=== PATIENT | female | born 1950 | race Caucasian/White ===

== ENCOUNTER 2019-06-11 16:43 | Emergency (ER) | payer MEDICARE, OTHER ==
[~2019-06-11] VITALS: Ht 175.3 cm; Wt 88.5 kg
== END 2019-06-11 19:41 | disposition home or self-care (01) ==
LOC: ED 16:43
PROC: 0HQ0XZZ Repair Scalp Skin, External Approach (ICD-10-PCS; principal; 2019-06-11)
DX: S01.01XA Laceration without foreign body of scalp, initial encounter (principal); W01.198A Fall on same level from slipping, tripping and stumbling with subsequent striking against other object, initial encounter
CPT/HCPCS: 12001; 70450; 90471; 90715; 99283-25

== ENCOUNTER 2019-06-28 09:04 | Emergency (ER) | payer MEDICARE, OTHER ==
[~2019-06-28] VITALS: Ht 175.3 cm; Wt 88.5 kg
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
== END 2019-06-28 09:22 | disposition home or self-care (01) ==
LOC: ED 09:04
DX: S01.01XD Laceration without foreign body of scalp, subsequent encounter (principal)

== ENCOUNTER 2019-08-09 08:52 | Day surgery (SDC) | payer MEDICARE, OTHER ==
[~2019-08-09] VITALS: Ht 175.3 cm; Wt 90.7 kg
--- NOTE | ~2019-08-09 | OR ---
[facility] [address] [place] [place], [place] [address] Draft DATE OF OPERATION: 08/09/2019 SURGEON: Naeem Piña MD PREOPERATIVE DIAGNOSIS: Episodic fecal incontinence and loose stool. POSTOPERATIVE DIAGNOSES: 1. Diverticulosis of left colon and right colon. 2. Small polyp in mid right colon. 3. Markedly redundant colon. PROCEDURE: Total colonoscopy with cold snare polypectomy x1 and biopsy of rectum x1. ANESTHESIA: Intravenous sedation, fentanyl 175 mcg, and Versed 5 mg. INDICATION: This 68-year-old white woman is a patient of Dr. Hebert and has had complaints of "rectal seepage" and low-grade incontinence. She has no gross incontinence. No blood per rectum. She has had loose stools that she would characterize as "diarrhea." Her last colonoscopy was greater than 10 years ago. She has no family history of colon cancer or inflammatory bowel disease. She is admitted at this time to undergo colonoscopy. She understands the risks of bleeding, infection, and perforation. FINDINGS: The prep was good. The colon was impressively elongated, non-fixed, and redundant. Visualization of the cecum was accomplished, but intubation of the cecum was not undertaken proper. Mucosa was evaluated with a lift technique, however. There was a small sessile polyp of the right mid colon, which was excised with cold snare technique. Biopsies were obtained of the rectum to assess for occult colitis. Sphincter tone was relatively marginal actually, but there was no sign of gross fecal incontinence. PROCEDURE NOTE: The patient was brought to the endoscopy suite and placed in lateral decubitus position, given intravenous sedation to the point of slurred speech and nystagmus. Full cardiopulmonary monitoring was maintained. Additional sedation was given throughout the procedure as needed. Digital rectal examination did not show much sphincter tone, though she did not have evidence of gross fecal incontinence otherwise. [employer] PATIENT NAME: DANK BABIN OPERATIVE REPORT DATE OF : 48 REPORT #: [id number] PHYSICIAN: NAEEM PIÑA MD PCP: AAMIR HEBERT DO REPORT IS CONFIDENTIAL AND NOT TO BE RELEASED WITHOUT AUTHORIZATION [facility] [address] [place], [place] [address] Draft video colonoscope was passed in the rectum and manipulated throughout the colon. Her colon was quite markedly redundant. Various maneuvers include abdominal wall stabilization, position change to supine and so forth were undertaken, ultimately allowing for passage of the scope to the right colon. The cecum itself could not be intubated but could be visualized. Biopsy forceps was used to withdraw the mucosa and evaluate more fully. In the right colon, there were numerous diverticula all of them small. There was a small sessile mid colonic polyp, which was excised with cold snare technique. The specimen was passed for pathology. Further withdrawal of scope throughout the remaining colon showed no sign of other abnormality, specifically no colitis or polyp or cancer, but certainly scattered diverticula. Biopsy was taken of the rectum to assess for occult colitis. There were internal hemorrhoidal changes, but no sign of other anorectal problem. The scope was removed and the patient was taken to recovery room in good condition. CONCLUDING DIAGNOSES: 1. Episodic fecal leakage and incontinence of uncertain etiology. No clear evidence of inflammatory bowel disease. 2. Diverticulosis, both left and right side. 3. Small sessile polyp, right colon, midportion. 4. Extremely redundant and nonfixed colon. PLAN: We will recommend Citrucel 1 tablespoon daily. She will return to the ongoing care of Dr. Hebert. Repeat colonoscopy in 5 years sooner if clinically indicated. Naeem Piña MD JM/MODL /[id number] cc: Aamir Hebert DO Copies: AAMIR HEBERT DO PATIENT NAME: DANK BABIN OPERATIVE REPORT DATE OF : 48 REPORT #: [id number] PHYSICIAN: NAEEM PIÑA MD PCP: AAMIR HEBERT DO REPORT IS CONFIDENTIAL AND NOT TO BE RELEASED WITHOUT AUTHORIZATION [address] [address] Draft ~ PATIENT NAME: CODE,DANK BRENDA OPERATIVE REPORT DATE OF : 48 REPORT #: [id number] PHYSICIAN: NAEEM PIÑA MD PCP: AAMIR HEBERT DO REPORT IS CONFIDENTIAL AND NOT TO BE RELEASED WITHOUT AUTHORIZATION
--- NOTE | 2019-08-09 10:38 | NUR ---
1020 up to br. denies any needs. iv patent.
--- NOTE | 2019-08-09 13:44 | NUR ---
08/09/19 1344 Jigna Shoemaker OXYGEN SATURATION 98% ON 2L VIA NC. OXYGEN TURNED OFF AT THIS TIME. DR PIÑA IS AT THE BEDSIDE. PATIENT'S QUESTIONS ARE ANSWERED.
--- NOTE | 2019-08-13 12:05 | PATH ---
[facility] [address] [place], [place] [address] Signed SPECIMEN(S): A ASCENDING POLYP SPECIMEN(S): B PROXIMAL ASCENDING POLYP SPECIMEN(S): C RECTUM SPECIMEN SOURCE: A. ASCENDING POLYP B. PROXIMAL ASCENDING POLYP C. RECTUM CLINICAL HISTORY: 10 year follow up / fecal incontinence. Dx: Melanosis coli. MICROSCOPIC DESCRIPTION: Histologic sections of all submitted blocks are examined by light microscopy. These findings, together with the gross examination, support the pathologic diagnosis. FINAL PATHOLOGIC DIAGNOSIS: A. Colon, ascending, polyp, polypectomy: - Fragments of tubular adenoma. - Negative for high-grade dysplasia or malignancy. B. Colon, proximal ascending, polyp, polypectomy: - Fragments of tubular adenoma. - Negative for high-grade dysplasia or malignancy. C. 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 - Negative for dysplasia or malignancy. NAL:cml:C2NR GROSS DESCRIPTION: Three specimens are received in three containers, labeled "CC." A. The specimen, labeled "CC, ascending colon polyp," is received in formalin and consists of two pink-whitt soft tissue fragment(s) that measure 0.1-0.2 cm in greatest dimension. The specimen is entirely submitted in cassette (A1). B. The specimen, labeled "CC, proximal ascending colon polyp," is received in formalin and consists of one pink-whitt soft tissue fragment that measures 0.4 cm in greatest dimension. The specimen is entirely submitted in cassette (B1). C. The specimen, labeled "CC, rectum biopsy," is received in formalin and consists of three pink-whitt soft tissue fragment(s) that measure 0.1-0.2 cm in greatest dimension. The specimen is entirely PATIENT NAME: DANK BABIN PATHOLOGY DATE OF : 48 REPORT #: [id number] PHYSICIAN: OSMEL BOCANEGRA PCP: ALYCE HEBERT DO REPORT IS CONFIDENTIAL AND NOT TO BE RELEASED WITHOUT AUTHORIZATION [facility] [address] [place] [address] Signed submitted in cassette (C1). JS (under the direct supervision of a pathologist) The Gross Description was prepared using a voice recognition system. The report was reviewed for accuracy; however, sound-alike word errors, addition and/or deletions may occur. If there is any question about this report, please contact Client Services. PERFORMING LABORATORY: The technical component was performed by [facility] [address] ([employer]: Merlyn Kramer MD; CLIA# [id number]). Professional interpretation was performed by [facility], [address] [address] ([employer]: Duran Celaya MD; CLIA# [id number]). Diagnostician: Breann Farris MD Pathologist Electronically Signed 08/13/2019 Copies: ~ PATIENT NAME: DANK BABIN PATHOLOGY DATE OF : 48 REPORT #: [id number] PHYSICIAN: OSMEL BOCANEGRA PCP: ALYCE HEBERT DO REPORT IS CONFIDENTIAL AND NOT TO BE RELEASED WITHOUT AUTHORIZATION
== END 2019-08-09 14:15 | disposition home or self-care (01) ==
LOC: DS 08:52 → OPS 08:52 → DS 09:00 → OPS 09:00 → DS 14:15 → OPS 14:15
PROVIDERS: Surgery
PROC: 0DBP8ZZ Excision of Rectum, Via Natural or Artificial Opening Endoscopic (ICD-10-PCS; 2019-08-09)
PROC: 0DBK8ZZ Excision of Ascending Colon, Via Natural or Artificial Opening Endoscopic (ICD-10-PCS; principal; 2019-08-09 14:15)
DX: D12.2 Benign neoplasm of ascending colon (principal); K63.89 Other specified diseases of intestine; K57.30 Diverticulosis of large intestine without perforation or abscess without bleeding; Q43.8 Other specified congenital malformations of intestine
CPT/HCPCS: 99153; G0500; J2250; J3010; J7121

== ENCOUNTER 2022-02-18 12:01 | Emergency (ER) | payer MEDICARE, OTHER ==
[~2022-02-18] VITALS: Ht 175.3 cm; Wt 93.9 kg
[2022-02-18] MEDS ORDERED: HYDROCODON-ACE1 EA10 PO (14:31)
== END 2022-02-18 14:35 | disposition home or self-care (01) ==
LOC: ED 12:01
DX: S22.31XA Fracture of one rib, right side, initial encounter for closed fracture (principal); R10.9 Unspecified abdominal pain; M62.838 Other muscle spasm; W19.XXXA Unspecified fall, initial encounter
CPT/HCPCS: 71101; 81001; 99284-25; A9270

== ENCOUNTER 2023-07-15 10:22 | Emergency (ER) | payer OTHER, MEDICARE ==
[~2023-07-15] VITALS: Ht 175.3 cm; Wt 90.7 kg
[~2023-07-15 10:22] MED LIST: HYDROCODON-ACE1 EA10 PO
[2023-07-15 12:58] VITALS: BP 148/78
== END 2023-07-15 12:55 | disposition home or self-care (01) ==
LOC: ED 10:22
DX: S01.01XA Laceration without foreign body of scalp, initial encounter (principal); W01.198A Fall on same level from slipping, tripping and stumbling with subsequent striking against other object, initial encounter; Y93.K1 Activity, walking an animal
CPT/HCPCS: 12001; 70450; 99283-25